=== PATIENT | male | born 1955 | race Hispanic/Latino ===

== ENCOUNTER 2020-10-22 11:56 | Emergency (ER) | payer OTHER ==
[~2020-10-22] VITALS: Ht 180.3 cm; Wt 90.7 kg
[2020-10-22 12:05] VITALS: BP 125/46
[2020-10-22 12:08] VITALS: BP 125/46
[2020-10-22 12:29] LABS: BASOPHILS % (AUTO) 0.4 % (0.0-5.0); EOSINOPHILS % (AUTO) 0.8 % (0.0-8.0); HEMATOCRIT 41.5 % (42-54); LYMPHOCYTES % (AUTO) 10.2 % (21.0-51.0); MEAN CORPUSCULAR HEMOGLOBIN 28.4 pg (27.0-33.0); MEAN CORPUSCULAR HGB CONC 32.5 g/dL (32.0-36.0); MEAN CORPUSCULAR VOLUME 87.4 fL (79-99); MONOCYTES % (AUTO) 4.9 % (3.0-13.0); NEUTROPHILS % (AUTO) 83.2 % (40.0-77.0); PLATELET COUNT (AUTO) 250 K/uL (130-400); RED BLOOD CELL COUNT(AUTO) 4.75 MIL/uL (4.50-6.20); RED CELL DISTRIBUTION WIDTH 14.4 % (11.0-15.5); WHITE BLOOD COUNT (AUTO) 11.8 K/uL (4.8-10.8)
[2020-10-22] MEDS ORDERED: MAG/ALUM/SIMETH 30 ML UDCUP ONE (12:29)
[2020-10-22] MEDS ORDERED: ONDANSETRON 4MG INJ ONE (12:29)
[2020-10-22] MEDS ORDERED: FAMOTIDINE 20MG VIAL IV ONE (12:29)
[2020-10-22] MEDS ORDERED: LIDOCAINE HCL 2% VISCOUS 15 ML UDCUP ONE (12:29)
[2020-10-22] MEDS ORDERED: DICYCLOMINE HCL 10 MG/5 ML ML PO ONE (12:29)
[2020-10-22] MEDS ORDERED: ONDANSETRON 4MG INJ IVP SCH (12:30)
[2020-10-22] MEDS ORDERED: MAG/ALUM/SIMETH 30 ML UDCUP PO SCH (12:30)
[2020-10-22] MEDS ORDERED: FAMOTIDINE 20MG VIAL IV SCH (12:30)
[2020-10-22 12:42] LABS: CREATININE 0.9 mg/dL (0.5-1.5); POTASSIUM 3.6 mmol/L (3.5-5.1)
[2020-10-22 12:47] LABS: ALBUMIN 3.4 g/dL (3.5-5.0); BILIRUBIN,TOTAL 0.5 mg/dL (0.2-1.0)
[2020-10-22 13:49] VITALS: BP 128/54
[2020-10-22 13:51] LABS: APPEARANCE,URINE Clear (CLEAR); BILIRUBIN,URINE Negative (NEGATIVE); COLOR,URINE Yellow (YELLOW); GLUCOSE, URINE (UA) Negative (NEGATIVE); KETONES,URINE Negative (NEGATIVE); LEUKOCYTE ESTERASE ,URINE Negative (NEGATIVE); NITRATE,URINE Negative (NEGATIVE); OCCULT BLOOD,URINE Trace (NEGATIVE); PROTEIN,URINE Negative (NEGATIVE); UROBILINOGEN,URINE 0.2 mg/dL (0.2-1.0)
[2020-10-22 14:02] LABS: BACTERIA,URINE Rare /HPF (None Seen); RBC,URINE 0-1 /HPF (0-1); SQUAMOUS EPITHELIAL CELL,UR Rare /HPF (0-2); WBC,URINE 0-1 /HPF (0-1)
[2020-10-22] MEDS ORDERED: ONDA4TAB10 PO (15:01)
[2020-10-22] MEDS ORDERED: FAMO-136 PO (15:01)
[2020-10-22 16:18] VITALS: BP 135/62
== END 2020-10-22 16:40 | disposition home or self-care (01) ==
LOC: EDH 11:56
DX: K29.70 Gastritis, unspecified, without bleeding (principal); R07.89 Other chest pain; E78.00 Pure hypercholesterolemia, unspecified; Z79.899 Other long term (current) drug therapy
CPT/HCPCS: 36415; 71045; 74176; 80053; 81001; 83690; 84484 ×2; 85025; 93005 ×2; 96374; 96375; 99285; J2405; J3490